=== PATIENT | female | born 1990 | race Caucasian/White ===

== ENCOUNTER 2020-01-14 00:09 | Outpatient (CLI) | payer BC, SELFPAY ==
[2020-01-14 16:40] LABS: SARS-CoV-2 RNA PCR Negative
== END 2020-01-14 00:10 | disposition home or self-care (01) ==
LOC: ANHCOVIDDT 00:09
PROVIDERS: Visit Provider Obstetrics & Gynecology
DX: Z01.812 Encounter for preprocedural laboratory examination (principal); Z11.59 Encounter for screening for other viral diseases
CPT/HCPCS: 87635; C9803; U0003

== ENCOUNTER 2020-01-16 01:25 | Day surgery (SDC) | payer BC, SELFPAY ==
[2020-01-04 11:46] VITALS: BMI 25.8
[2020-01-16 11:16] VITALS: BP 124/86; PULSE 75; RESP 16; TEMP 36.3; O2SAT 100
[2020-01-16] MEDS: LACTATED RINGERS 1,000 ML 30 ML IV CONT (12:04)
[2020-01-16] MEDS: ACETAMINOPHEN 500 MG TABLET 1000 MG PO (12:12)
--- NOTE | 2020-01-16 12:14 | P.PNAN_ITS ---
Anes - Initial Pre Proc Eval Procedure: Operation Date: 01/16/20 13:00 Proposed Procedures p Hysteroscopy Dilation and Curettage With Caroline Ablation - Zhou Vasquez MD Date/Time: 01/16/20 12:14 Surgeon: Zhou Vasquez MD Pre Op Diagnosis: Heavy Bleeding, Cramping Patient Data Age: 29 Gender: F Height: 5 ft 10 in Weight: 82.1 kg Last Vital Signs Temp 97.4 F L 01/16/20 11:16 Pulse 75 01/16/20 11:16 Resp 16 01/16/20 11:16 BP 124/86 01/16/20 11:16 Pulse Ox 100 01/16/20 11:16 Allergies Allergy/AdvReac Type Severity Reaction Status Date / Time No Known Allergies Allergy Verified 01/04/20 11:46 Home Medications Medication Instructions Recorded Confirmed Type cholecalciferol (vitamin D3) 25 mcg PO DAILY 01/04/20 01/16/20 History [Vitamin D3] cyanocobalamin (vitamin B-12) 1,000 mcg PO DAILY 01/04/20 01/16/20 History [Vitamin B-12] interferon beta-1a (albumin) 44 mcg SUBCUT 3XW 01/04/20 01/04/20 History [Rebif (with albumin)] modafinil 100 mg PO DAILY 01/04/20 01/16/20 History Patient hx anesthesia problems: none Family hx anesthesia problems: none [facility] Past Medical History Medical History (Updated 01/16/20 @ 12:14 by Ren Bustamante MD) Multiple sclerosis takes meds no problems at present Social History Social History Smoking status: Never smoker Alcohol intake: current Drinks per week: 2 Spiritual care concerns: No Anes - Eval Final PreProcedure Day of Procedure 01/16/20 12:14 Patient weight: normal Heart: regular rate and rhythm Lungs: clear to auscultation Airway: Mallampati scale class 1 Neurological: alert and oriented Last oral intake: >/= 8 hours ASA classification: II Emergent: no Anesthetic plan: proceed Anesthesia type and monitoring: general GIVS and standard monitoring Informed Consent: The patient's anesthetic plan and its attendant risks and benefits were discussed with the patient/family/POA. Questions were solicited and answers provided to the satisfaction of the patient/family/POA.
--- NOTE | 2020-01-16 12:58 | PM.IMHP ---
H&P: HPI History of Present Illness Date/Time: 01/16/20 12:58 Chief complaint: Heavy Bleeding, Cramping Narrative: 29 y/o with heavy, painful menses. She has had a tubal ligation. She desires surgical management of her problem. Review of Systems Review of Systems: All systems reviewed & are unremarkable except as noted in HPI and below PMFSH Past Medical History Medical History Multiple sclerosis takes meds no problems at present Social History Social History Smoking status: Never smoker Alcohol intake: current Drinks per week: 2 Spiritual care concerns: No Meds Home Medications and Allergies Home Medications Medication Instructions Recorded Confirmed Type cholecalciferol (vitamin D3) 25 mcg PO DAILY 01/04/20 01/16/20 History [Vitamin D3] cyanocobalamin (vitamin B-12) 1,000 mcg PO DAILY 01/04/20 01/16/20 History [Vitamin B-12] interferon beta-1a (albumin) 44 mcg SUBCUT 3XW 01/04/20 01/04/20 History [Rebif (with albumin)] modafinil 100 mg PO DAILY 01/04/20 01/16/20 History Allergies Allergy/AdvReac Type Severity Reaction Status Date / Time No Known Allergies Allergy Verified 01/16/20 12:15 Vital Signs Vital Signs - 24 hr 01/16/20 11:16 Temperature 36.3 C L Pulse Rate 75 Respiratory Rate 16 Blood Pressure 124/86 Pulse Oximetry 100 Exam Const: Orientation/consciousness: patient oriented x3 Other: Well-developed, well-nourished female in no acute distress. Neck: Thyroid: thyroid normal Lymphatic: no lymphadenopathy noted (in neck, axilla or inguinal nodes) Resp: Effort & Inspection: normal respiratory effort Auscultation: clear to auscultation bilaterally Cardio: Rate: regular rate Rhythm: regular rhythm Heart sounds: S1 normal heart sound present and S2 normal heart sound present GI: Other: ABD: Soft, nontender, nondistended. No guarding or rebound tenderness. No hepatosplenomegaly. : General: Yes no CVA tenderness Other: External genitalia: normal female hair distribution, without lesion. Urethral meatus: no lesion, non prolapsed. Bladder: no mass, nontender Vagina: well-estrogenized, without lesion or discharge. No cystocele or rectocele. Cervix: no lesion or discharge. Uterus: small, anteverted, freely mobile, nontender Adnexa: no mass or tenderness. Anus/perineum: no lesions, nontender Back/Spine/Pelvis: Back: no CVA tenderness Skin: General skin exam: normal color and no rashes or lesions noted Neuro: General: patient oriented x3 Extrem: Other: Extremities: nontender with no edema Psych: Mental Status: mental status grossly normal Affect: normal affect Assessment and Plan Assessment and plan (1) Menometrorrhagia: Code(s): N92.1 - Excessive and frequent menstruation with irregular cycle Status: Acute Assessment and Plan: We have reviewed medical management vs. surgical management options. She prefers the latter. Specifically, she would like a hysteroscopy / D&C and endometrial ablation. She understands risks of surgery to include risks of anesthesia, risks of pain, infection, bleeding, blood products, thromboembolic phenomena and damage to adjacent structures such as bowel, bladder, ureters, blood vessels and nerves. She understands all these risks and elects to proceed with surgery. (2) Dysmenorrhea: Code(s): N94.6 - Dysmenorrhea, unspecified Status: Acute
--- NOTE | 2020-01-16 13:01 | WPDHPUPDATE1 ---
History and Physical Update Update Date/Time: 01/16/20 13:01 History and Physical has been reviewed, including an updated exam of the patient. There are NO changes in the patient's condition. Risks, benefits, and alternatives have been discussed and questions answered. Patient agrees to proceed with procedure.
[2020-01-16] MEDS: KETOROLAC 30 MG/ML VIAL (*BKC) IV PUSH (13:27)
--- NOTE | 2020-01-16 13:35 | SUR.OPER ---
600ml hysteroscopy irrigation in and 600ml out
--- NOTE | 2020-01-16 13:37 | P.OP_ITS ---
Procedure Note - Detailed Date of procedure: 01/16/20 Pre-op diagnosis: Heavy Bleeding, Cramping Menometrorrhagia Dysmenorrhea Post-op diagnosis: same Procedure performed: Hysteroscopy Dilation and sharp curettage Endometrial ablation Description of procedure: The patient was taken to the operating room where she was prepared and draped in the usual sterile fashion in the dorsal lithotomy position. The bladder was drained with a red rubber catheter. A sterile speculum was placed into the vagina. The anterior lip of the cervix was grasped with single-tooth tenaculum. Ten mL of 1% lidocaine was administered in a paracervical block. The cervix was then gently dilated using Hegar dilators until an 8 mm dilator could be passed. Hysteroscopy was performed using sterile saline as a distention medium. Findings are as noted above. Sharp curettage was then performed, and endometrial curettings were collected on a Telfa pad and passed off to be sent to pathology. Finally, the the Caroline device was advance d and endometrial ablation commenced without difficulty. The device was withdrawn and a second look was taken using the hysteroscope. Excellent coverage of the endometrial cavity was noted. The tenaculum was removed. Hemostasis was excellent. Sponge, lap, needle and instrument counts were correct. The patient was awakened and taken to the recovery room in stable condition. I was present and scrubbed through the entire procedure. Implants: None Anesthesia: MAC and local (paracervical block) Surgeon: Zhou Vasquez MD Estimated blood loss (mL): 5 Drains: No Packing: No Pathology: yes (endometrial curettings) Complications: None Condition: stable Disposition: PACU Findings: Unremarkable endometrium. Both tubal ostia seen. Uterus sounded to a depth of 9 cm with a cervical length of 3 cm, giving a subtracted uterine cavity length of 6 cm.
[2020-01-16 13:38] VITALS: BP 102/54; PULSE 60; RESP 10; O2SAT 100
[2020-01-16 14:00] VITALS: BP 106/63; PULSE 65; RESP 12; O2SAT 99
[2020-01-16 14:30] VITALS: BP 115/75; PULSE 49; RESP 12
[2020-01-16 14:40] VITALS: BP 122/71; PULSE 50; RESP 12
== END 2020-01-16 14:48 | disposition home or self-care (01) ==
PROVIDERS: PCP Physician Assistant; Visit Provider Obstetrics & Gynecology
PROC: 0U5B8ZZ Destruction of Endometrium, Via Natural or Artificial Opening Endoscopic (ICD-10-PCS; CPT 58563; principal; 2020-01-16 13:00)
DX: N92.0 Excessive and frequent menstruation with regular cycle (principal); Z98.51 Tubal ligation status
CPT/HCPCS: 58558; 88305; A9270; J1885; J2250; J2405; J2704; J3010; J7030; J7120

== ENCOUNTER 2023-10-01 16:42 | Emergency (ER) | payer BC, SELFPAY ==
--- NOTE | ~2023-10-01 | XR_ITS ---
EXAMINATION: XR chest 2V DATE: 10/01/2023 16:59 INDICATION: Cough and fever. TECHNIQUE: Frontal and lateral views of the chest were obtained. COMPARISON: None. FINDINGS: There are airspace opacities in right upper lobe, consistent with pneumonia. A calcified le ft lung nodule is consistent with old granulomatous disease. There is a trace right pleural effusion. No pneumothorax. The heart size is normal. IMPRESSION: 1. Right upper lobe pneumonia. Reviewed, dictated and finalized at location E.
[2023-10-01 16:55] VITALS: BP 102/87; PULSE 104; RESP 18; TEMP 36.8; O2SAT 87
[2023-10-01 17:46] VITALS: BP 138/90; PULSE 108; RESP 20; O2SAT 97
[2023-10-01 18:01] VITALS: BP 143/90; PULSE 110; RESP 20; O2SAT 96
--- NOTE | 2023-10-01 18:26 | PC.NURSE ---
Pt ambulated with pulse ox. Sats remained at 98% and HR 115-120. MD notified.
--- NOTE | 2023-10-01 18:41 | ED.URI ---
HPI - URI/Sore Throat General Chief Complaint: Upper Respiratory Infection Stated Complaint: r/o pneumonia Time Seen by Provider: 10/01/23 17:15 History of Present Illness HPI Narrative: 33-year-old female presents emergency department for evaluation approximately 8 days upper respiratory illness. Patient states symptoms started approximately days ago associated with fever and cough. Patient reports over the last 2 days she has had acute worsening of her symptoms. Patient denies any prior history of underlying lung disease. Patient is not a smoker. Patient does not vape. Patient has no prior history of pulmonary embolism. Related Data Home Medications Medication Instructions Recorded Confirmed cholecalciferol (vitamin D3) 25 25 mcg PO DAILY 01/04/20 01/16/20 mcg (1,000 unit) tablet (Vitamin D3) cyanocobalamin (vitamin B-12) 1,000 mcg PO DAILY 01/04/20 01/16/20 1,000 mcg tablet (Vitamin B-12) interferon beta-1a (albumin) 44 44 mcg subcut 3XW 01/04/20 01/04/20 mcg/0.5 mL subcutaneous syringe (Rebif (with albumin)) modafinil 100 mg tablet 100 mg PO DAILY 01/04/20 01/16/20 Allergies Allergy/AdvReac Type Severity Reaction Status Date / Time glatiramer (copolymer 1) Allergy Hives Verified 10/01/23 16:46 [From Copaxone] Review of Systems Review of Systems: All systems reviewed & are unremarkable except as noted in HPI and below PMFSH Past Medical History Medical History (Updated 10/01/23 @ 18:49 by Ac Marc MD) Multiple sclerosis takes meds no problems at present Social History Social History Smoking status: Never smoker Alcohol intake: current Drinks per week: 2 Spiritual care concerns: No Exam Narrative: APPEARANCE: Well appearing, no pain, no distress, well-nourished. HEAD: normocephalic, atraumatic. EYES: PERRLA/EOMI, conjunctivae clear. NOSE: Normal no drainage EARS:TMS clear with good light reflex. THROAT: Pharynx clear, no exudate. NECK: Supple. No adenopathy, no masses. RESPIRATORY: Rhonchi on right side, left lungs are clear CARDIOVASCULAR: Regular rate and rhythm without murmurs rubs or gallops. ABDOMINAL: Soft, nontender, nondistended, normal bowel sounds MUSCULOSKELETAL: Moves all extremities. Strength/ROM intact, No edema, No calf tenderness. NEURO: Alert. Cranial nerves II through XII intact. Good gait. Good coordination SKIN: Warm, dry. Normal Color Course Vital Signs Vital signs: Vital Signs Temperature 98.3 F 10/01/23 16:55 Pulse Rate 104 H 10/01/23 16:55 Respiratory Rate 18 10/01/23 16:55 Blood Pressure 102/87 10/01/23 16:55 Pulse Oximetry 87 L 10/01/23 16:55 Temperature 98.3 F 10/01/23 16:55 Pulse Rate 110 H 10/01/23 18:01 Respiratory Rate 20 10/01/23 18:01 Blood Pressure 143/90 H 10/01/23 18:01 Pulse Oximetry 96 10/01/23 18:01 Oxygen Delivery Room Air 10/01/23 17:30 MDM - URI/Sore Throat MDM Narrative Medical decision making narrative: 33-year-old female presenting ED for evaluation for increased cough congestion and fever. Chest x-ray does show evidence of a right upper lobe pneumonia. Patient is not hypoxic she was able to ambulate in the emergency department with a stable pulse ox. Patient will be started on Augmentin in his throat emergency department discharged home with is a through and Augmentin. Patient is also provided albuterol and Tessalon Perles for supportive care. Patient was encouraged to have close follow-up with primary care physician. Differential Diagnosis Differential diagnosis: Likely upper respiratory infection, viral infection, bronchitis, influenza and pharyngitis Imaging Data Radiologist's impression: Impressions Chest X-Ray 10/01/23 17:08 IMPRESSION: 1. Right upper lobe pneumonia. Discharge Plan Discharge Clinical Impression: Pneumonia Patient Disposition: Home, Self-Care C
[2023-10-01] MEDS: AMOXICILLIN/CLAVULANATE K 875-125 MG TAB 1 TABLET PO (18:46)
[2023-10-01] MEDS: AZITHROMYCIN 250 MG TABLET 500 MG PO (18:46)
[2023-10-01 19:22] VITALS: BP 131/89; PULSE 110; RESP 20; O2SAT 99
== END 2023-10-01 19:23 | disposition home or self-care (01) ==
PROVIDERS: Emergency Provider Emergency Medicine; PCP Physician Assistant
DX: J18.9 Pneumonia, unspecified organism (principal); G35 Multiple sclerosis
CPT/HCPCS: 71046; 99283; A9270

== ENCOUNTER 2023-10-24 15:19 | Outpatient (CLI) | payer BC, SELFPAY ==
--- NOTE | ~2023-10-24 | XR_ITS ---
EXAMINATION: XR chest 2V DATE: 10/24/2023 15:32 INDICATION: Right upper lung zone pneumonia TECHNIQUE: PA and lateral views of the chest were obtained. COMPARISON: Chest radiograph dated 10/01/2023 FINDINGS: Interval resolution of prior airspace opacities in the right upper lobe which beyond the minor fissur e which likely represented the reported pneumonia. Unchanged small calcified nodule left lower lobe n odule consistent with old granulomatous disease. No airspace opacities, pulmonary edema, pleural effu kavon or pneumothorax. The cardiomediastinal silhouette is normal. Visualized bones and soft tissues a re unremarkable. IMPRESSION: 1. Resolution of prior right upper lobe pneumonia. No acute cardiopulmonary disease. Reviewed, dictated and finalized at location B. IMPRESSION: 1. Resolution of prior right upper lobe pneumonia. No acute cardiopulmonary dis ease.
== END 2023-10-24 15:20 | disposition home or self-care (01) ==
LOC: ANHIMG 15:20
PROVIDERS: PCP Physician Assistant; Visit Provider Physician Assistant
DX: J18.1 Lobar pneumonia, unspecified organism (principal)
CPT/HCPCS: 71046